=== PATIENT | male | born 1995 | race African-American/Black ===

== ENCOUNTER 2021-12-30 15:41 | Emergency (ER) | payer MEDICAID, SELFPAY ==
[2021-12-30 15:43] VITALS: BP 119/73; PULSE 90; RESP 16; TEMP 36.7; O2SAT 97; BMI 27.0
--- NOTE | 2021-12-30 16:44 | HO.SUDE ---
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 Pt declined SUDE at this time and denied needing treatment resources.
--- NOTE | 2021-12-30 16:45 | MHC.CARE ---
CARE Team met with pt to offer outpatient psychiatric resources. Pt reports that he is homeless and has not had health insurance since losing his father's health insurance. Pt is interested in being referred to [facility]. CARE Team provided pt with contact information for financial counselor so he can contact them for assistance with getting [facility] and will be referring pt to [facility].
--- NOTE | 2021-12-30 17:10 | ED_ITS ---
HPI - Overdose General Chief Complaint: Overdose Stated Complaint: OD Time Seen by Provider: 12/30/21 15:46 Source: patient Mode of arrival: EMS Limitations: no limitations History of Present Illness HPI Narrative: 26-year-old male who presents emergency department for evaluation of unintentional overdose. The patient states that he has chronic pain in takes Percocet for his pain states his right finger where he has a subungual hematoma to the index finger and he took 2 Percocets. Patient told me that these medications were prescribed by him and he did not buy them on the street or get them from friend. According to the nursing notes, the patient passed out in the back of a new bur. The tumor combine driver then gave him Narcan 2 mg intranasally and the patient woke up when he was here in the emergency department. The patient states that he was in a car with a friend but he cannot remember the details of what happened to him. He denies intentionally trying to harm himself. He states that he uses marijuana and did smoke marijuana today but denies using any other drugs except for the Percocet that he states is prescribed for him. Related Data Allergies Allergy/AdvReac Type Severity Reaction Status Date / Time No Known Allergies Allergy Verified 12/30/21 16:49 Review of Systems Verdana 4l Review of Systems: Yes all other systems are reviewed and Verdana 4d are negative [facility] Past Medical History [facility] Narrative: Past medical history: Glaucoma. Past surgical history: None. Social history: He smokes 4 cigarettes per day times 10 years. Denies alcohol use. He smokes marijuana daily. He states that he gets the marijuana from a dispensary but sometimes gets the marijuana friends. Social History Social History Advance Directives: No Advance Directives Information Provided: No Physical Exam Verdana 4l Vital Signs: Verdana 4d Verdana 4d Vital Signs: Verdana 4d Verdana 4Bd Last Vital Signs Verdana 4d Hand Trimmer New 4d Hand Trimmer New 4d Temp 98.5 F 12/30/21 18:30 Hand Trimmer New 4d Pulse 86 12/30/21 18:30 Hand Trimmer New 4d Resp 11 L 12/30/21 18:30 BP 125/62 12/30/21 18:30 Pulse Ox 98 12/30/21 18:30 BMI result Body Mass Index 27.0 Const: General: cooperative and no acute distress Orientation/consciousness: oriented to person and oriented to place Limitations: no limitations HENMT: Head: Yes normal to inspection, Yes normocephalic and Yes atraumatic Ears: external ears normal General nose exam: Normal external nose present Face and sinus: Yes normal facial exam Mouth: Normal oral and palatal mucosa present Throat: Yes posterior oropharynx normal Eyes: General: appearance normal, both eyes and all related structures Pupils: Equal, round and reactive pupils present Neck: Neck: Yes normal visual inspection, Yes no lymphadenopathy, Yes trachea midline and Yes supple Chest: Chest palpation & inspection: normal inspection of the chest and normal palpation of entire chest wall Resp: Effort & Inspection: normal respiratory effort and able to speak in complete sentences Auscultation: clear to auscultation bilaterally Cardio: Rate: regular rate Rhythm: regular rhythm Heart sounds: S1 normal heart sound present, S2 normal heart sound present and no murmurs GI: Inspection: Yes normal to inspection Palpation (GI): Soft to palpation, nontender and no guarding Auscultation: normal bowel sounds : General: Yes no CVA tenderness Back/Spine/Pelvis: Back: no CVA tenderness Skin: General skin exam: no rashes or lesions noted Neuro: General: oriented to person and oriented to place Cranial nerves: Yes CN's II-XII intact bilaterally and Yes Equal, round and reactive pupils present Cognition (Neuro): normal cognition Motor exam (neuro): 5/5 motor strength present throughout Extrem: General: Yes normal to inspection Psych: Appearance: grossly normal Speech and movement: Normal speech and movement present Affect: normal affect Attitude: cooperative Thought process: Normal thought process present Thought content: Normal thought content present Course Course Course Narrative: 26-year-old male who presents emergency department for evaluation altered level of consciousness after taking 2 Percocets, patient was apparently given intranasal Narcan prior to coming to the emergency department and here in the emergency department he is awake and alert and has no respiratory difficulties. I did discuss prevalence of fentanyl and drugs that are purchased on the street especially pills that look like prescription medications with the patient. The patient understood this discussion. The patient will be observed for 2 hours an d if he remains awake and alert without any respiratory difficulties, we will then discharge him to home. The patient was evaluated by our care team will also have the patient evaluated by a assistant men's soccer coach to see if he is interested in getting treatment for drug addiction. 1842: Patient was observed for greater than 2 hours. He remains awake and alert. The patient will be discharged home with intranasal Narcan. Discharge Plan Discharge Clinical Impression: Drug overdose Patient Disposition: Home, Self-Care Instructions: Adult Overdose (ED) Additional Instructions: You accidentally overdosed on a narcotic medication today. Almost all drugs that you by on the street have fentanyl and them and you most likely took of pill today that had fentanyl and which cause caused due to stop breathing in almost diet today. Your are being discharged home with intranasal Narcan. If you are going to continue to use heroin, you should make sure that there is a sober person with you that is not using drugs and that this person can administer intranasal Narcan in the event that you stop breathing. Follow the recommendations as per our care team. Follow-up with your doctor in 2 days. Please return to the emergency department if your symptoms get worse or if you develop any symptoms that are concerning to you.
[2021-12-30 17:33] VITALS: BP 113/53; PULSE 77; RESP 12; TEMP 36.7; O2SAT 97
--- NOTE | 2021-12-30 17:38 | PC.NURSE ---
pt brought to ed by [employer] courtesy car driver who reports that pt passed out in his car and he was unable to wake him up. [employer] courtesy car driver reports that he gave pt 2mg nasal narcan. pt states he took his prescriptive percocet that he has for a wound to his right second finger. pt denies SI/HI, he states he just wanted to relieve his finger pain. pt was given 2 mg nasal narcan by ed charge nurse. pt currently alert and oriented, vss, denies pain. NS on the monitor. no complaints.
[2021-12-30 18:30] VITALS: BP 125/62; PULSE 86; RESP 11; TEMP 36.9; O2SAT 98
[2021-12-30] MEDS: Naloxone HCl Nasal TAKE HOME 4 MG SPRAY NOSTRILALT (18:58)
[2021-12-30 19:00] VITALS: BP 121/62; PULSE 87; RESP 13; O2SAT 97
== END 2021-12-30 19:24 | disposition home or self-care (01) ==
PROVIDERS: Emergency Provider Emergency Medicine Emergency Medical Services
DX: T40.2X1A Poisoning by other opioids, accidental (unintentional), initial encounter (principal); Y92.810 Car as the place of occurrence of the external cause
CPT/HCPCS: 99283; 99284

== ENCOUNTER 2023-01-13 01:54 | Emergency (ER) | payer OTHER, SELFPAY ==
--- NOTE | ~2023-01-13 | XR_ITS ---
EXAMINATION: XR FOOT, LEFT CLINICAL INFORMATION: Pain COMPARISON: None TECHNIQUE: AP, lateral, and oblique views of the left foot. FINDINGS: No acute fracture or dislocation. Plate and screw transfixation of the medial cuneiform and along the lateral aspect of the anterior calcaneus. No evidence of hardware failure or complication. Soft tissues unremarkable. XR/XR foot LT min 3V IMPRESSION: * No acute fracture or dislocation. * No evidence of hardware failure or complication.
[2023-01-13 02:30] VITALS: BMI 24.3
--- NOTE | 2023-01-13 06:43 | ED_ITS ---
HPI - Extremity Problem General Chief complaint: Extremity Injury, Lower Stated complaint: Foot pain Time Seen by Provider: 01/13/23 06:29 Source: patient Mode of arrival: EMS Limitations: no limitations History of Present Illness HPI Narrative: 27-year-old male patient, homeless, presents emergency department for evaluation of left foot pain x2 days and neck pain. The patient cannot recall if he injured his left foot. He states he does have injury to his left foot when he was younger and had some type of surgical repair. He states that the pain is worse if he tries to walk. The patient is also complaining of neck pain. He points to his right and left trapezius muscles when asked to localize the pain. He states that the neck pain is worse with movement. The patient denied fever, chills, chest pain, shortness of breath, nausea, vomiting, numbness, weakness. He states that he is homeless and does walk a lot. The does smoke cigarettes and drinks alcohol. He states that he smokes marijuana and uses crack cocaine in intranasal cocaine but does not use injection drugs. 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 Social history: He is homeless. He does smoke cigarettes, does drink alcohol, he does use marijuana, uses intranasal cocaine and smokes crack cocaine. Social History Social History Advance Directives: No Physical Exam Vital Signs: Vital Signs: BMI result Body Mass Index 24.3 Const: Other: Awake, alert, male patient, does not appear to be in distress, answers all questions appropriately HEENT: Head: Yes normal to inspection, Yes normocephalic and Yes atraumatic Ears: external ears normal General nose exam: Normal external nose present Face and sinus: Yes normal facial exam Mouth: Normal oral and palatal mucosa present Throat: Yes posterior oropharynx normal Eyes: General: appearance normal, both eyes and all related structures Pupils: Equal, round and reactive pupils present Neck: Other: Patient has tenderness palpation of his left and right trapezius muscles, there is no spasm of these muscles, has no cervical spine tenderness has full range of motion of his neck without any limitations. Chest: Chest palpation & inspection: normal inspection of the chest and normal palpation of entire chest wall Resp: Effort & Inspection: normal respiratory effort and able to speak in complete sentences Auscultation: clear to auscultation bilaterally Cardio: Rate: regular rate Rhythm: regular rhythm Heart sounds: S1 normal heart sound present, S2 normal heart sound present and no murmurs GI: Inspection: Yes normal to inspection Palpation (GI): Soft to palpation, nontender and no guarding Auscultation: normal bowel sounds : General: Yes no CVA tenderness Back/Spine/Pelvis: Back: no CVA tenderness Skin: General skin exam: no rashes or lesions noted Neuro: Cranial nerves: Yes CN's II-XII intact bilaterally and Yes Equal, round and reactive pupils present Cognition (Neuro): normal cognition Motor exam (neuro): 5/5 motor strength present throughout Extrem: Other: The patient's left foot and ankle appear to be normal, there is no soft tissue swelling, there is no erythema increased warmth, has good peripheral pulses, there is no localizing point tenderness Psych: Appearance: grossly normal Speech and movement: Normal speech and movement present Affect: normal affect Attitude: cooperative Thought process: Normal thought process present Thought content: Normal thought content present Medications Administered Discontinued Medications Generic Name Dose Route Start Last Admin Trade Name Freq PRN Reason Stop Dose Admin Ibuprofen 400 mg 01/13/23 06:43 01/13/23 06:54 Ibuprofen 400 Mg Tablet PO 01/13/23 06:44 400 mg ONCE ONE Administration Medical Decision Making Medical Decision Making [facility] Narrative: 27-year-old homeless male who presents emergency department for evaluation of left foot pain x2 days and neck pain with no injury. Patient's review of system s were negative. Patient does smoke cigarettes, drinks alcohol uses crack cocaine and intranasal cocaine but denies injection drugs. Patient's neck exam did reveal tenderness palpation of his trapezius muscles which is consistent with a neck sprain. Patient's left foot appear to be normal with no point tenderness and no other abnormal findings. X-ray of the left foot on my independent interpretation revealed plate and screw fixation with no evidence of acute fracture. I did discuss these findings with the patient. He was given ibuprofen 400 mg orally. He was prescribed ibuprofen 400 mg 3 times a day as needed for pain. Was given printed and verbal instructions and discharged home. Differential Diagnosis Differential Diagnoses: The differential diagnosis associated with the presentation includes Differential diagnosis includes was not limited to neck: Muscle strain, cervical sprain, disc disease, infectious process. Foot: Foot sprain, foot strain, fracture, infectious process Independent Interpretation I performed an independent interpretation of an: Plain X-Ray (Left foot) Interpretation: My independent interpretation is no acute fracture, there is hardware which appears to be intact consistent with an old foot fracture Radiology Impression Discussion of test interpretation with radiology: I have reviewed the radiologist's reading. Radiologist Impression: EXAMINATION: XR FOOT, LEFT CLINICAL INFORMATION: Pain COMPARISON: None TECHNIQUE: AP, lateral, and oblique views of the left foot. FINDINGS: No acute fracture or dislocation. Plate and screw transfixation of the medial cuneiform and along the lateral aspect of the anterior calcaneus. No evidence of hardware failure or complication. Soft tissues unremarkable. XR/XR foot LT min 3V IMPRESSION: * No acute fracture or dislocation. * No evidence of hardware failure or complication. Dictated By:Samuel Hickey MDSigned By:<Electronically signed by Samuel Hickey MD in [place]>01/13/23 0311 Discharge Plan Discharge Clinical Impression: Acute pain of left foot Acute strain of neck muscle Qualifiers: Encounter type: initial encounter Qualified Code(s): S16.1XXA - Strain of muscle, fascia and tendon at neck level, initial encounter Patient Disposition: Home, Self-Care Instructions: Cervical Strain (ED) Additional Instructions: The x-ray your left revealed no broken bones. You most likely have a sprain of your foot and your neck causing your pain. Take ibuprofen 400 mg pills, 1 pill every 6 hours as needed for pain. Follow-up with your doctor in 2 days. Please return to the emergency department if your symptoms get worse or if you develop any symptoms that are concerning to you. Prescriptions: New ibuprofen 400 mg tablet 400 mg PO TID PRN (Reason: fever or pain) Qty: 30 0RF Interventions: ED Discharge Assessment Last Done: 01/13/23 07:07 Discharge Date/Time: 01/13/23 07:09
[2023-01-13] MEDS: Ibuprofen 400 MG TABLET PO (06:54)
== END 2023-01-13 07:09 | disposition home or self-care (01) ==
PROVIDERS: Emergency Provider Emergency Medicine Emergency Medical Services
DX: S16.1XXA Strain of muscle, fascia and tendon at neck level, initial encounter (principal); M79.672 Pain in left foot; X58.XXXA Exposure to other specified factors, initial encounter; Y93.9 Activity, unspecified; Y92.9 Unspecified place or not applicable; Y99.9 Unspecified external cause status
CPT/HCPCS: 73630; 99283

== ENCOUNTER 2025-05-29 13:50 | Emergency (ER) | payer OTHER, SELFPAY ==
[2025-05-29 13:57] VITALS: BP 109/65; BP 120/75; PULSE 101; PULSE 112; RESP 14; TEMP 36.6; O2SAT 97; O2SAT 99
[2025-05-29 14:01] VITALS: BP 109/65; PULSE 101; RESP 14; TEMP 36.6; O2SAT 99; BMI 28.7
--- NOTE | 2025-05-29 14:28 | ED.OVERDOSE ---
HPI - Overdose General Chief Complaint: Overdose Stated Complaint: ?OD 4MG NARCAN Time Seen by Provider: 05/29/25 13:59 Source: patient Mode of arrival: ambulatory Limitations: no limitations History of Present Illness ED Provider: Karmen Porter NP HPI Narrative: Patient is a 29-year-old male who presents emergency department via EMS for evaluation. He admits to recreational heroin and crack cocaine usage, smoking it. States that he did purchase from a new person recently, he has not certain whether there may have been any fentanyl. He last recalls being outside of a local convenience smart. PD was called to scene where he was found in an alley and 4 mg of intranasal Narcan was administered. You arrived to emergency department and initially reported to nursing staff that he was having headache and some chest tightness. He denies either symptoms to me at this time. He denies any interest in detox. He is amenable to observation stay in the emergency department to assure he does not relapse in 2 overdose. He offers no physical complaints at this time. Related Data Previous Rx's ?Medication ?Instructions ?Recorded ibuprofen 400 mg tablet 400 mg PO TID PRN fever or pain 01/13/23 #30 tabs Allergies Allergy/AdvReac Type Severity Reaction Status Date / Time No Known Allergies Allergy Verified 05/29/25 14:04 Review of Systems Review of Systems: Yes all other systems are reviewed and are negative PMFSH Past Medical History Attestation statement: The following information was validated with the patient. Source: old records reviewed Social History Social History Unable to assess alcohol history related to: Refusing to respond Smoked in Last 30 Days: Yes Use of substances other than those prescribed or required for medical reasons: Yes Substance Use Type: Crack/Cocaine and Heroin Substance Use Frequency: Chronic Longstanding Last Used Substance: Just Prior to Admission Advance Directives: No Advance Directives Information Provided: No Do you have a plan to hurt others: No Plan Physical Exam Vital Signs: Vital Signs: Last Vital Signs Temp 98 F 05/29/25 22:12 Pulse 96 05/29/25 22:12 Resp 13 05/29/25 22:12 BP 116/68 05/29/25 22:12 Pulse Ox 97 05/29/25 22:12 O2 Del Method Room Air 05/29/25 22:12 BMI result Body Mass Index 28.7 Appearance: Alert.?Oriented to person, place and time. No acute distress.?Normal affect. Eyes: Pupils equal, round and reactive to light.? ENT: Pharynx normal.?? Neck: Normal inspection.? Neck supple.?? CVS: Heart sounds normal. Normal heart rate and rhythm.? Pulses normal.?? Respiratory: No respiratory distress.? Lung sounds clear to auscultation bilaterally?? Abdomen: Soft and non-tender. Normoactive bowel sounds. Skin: Skin warm and dry.? Normal skin color.? ?? Extremities: No lower extremity edema. Neuro: Moves all extremities spontaneously. Sensation intact bilaterally. No focal neuro deficits. Ambulates with normal steady gait. Course Reevaluation(s) Reevaluation #1: ECG reveals Normal sinus rhythm, ventricular rate of 86, normal ENOCH, QTC prolonged 500 MS, anterolateral leads with slight ST-depression, and T-wave inversions, no prior available for comparison, initial troponin within normal range at 16.8, given cocaine usage, will obtain delta troponin. When asked again at this time he does admit to having pain in the middle of his chest describing it as a tightness sensation nonradiating. Repeat ECG reveals QTC 452, T-wave inversions less prevalent, patient to receive aspirin 324 mg. CBC is without leukocytosis, has a mild normocytic anemia that does not meet transfusion criteria, no thrombocytopenia. No electrolyte derangement. No WHIT. LFTs unremarkable. Time: 17:16 Reevaluation #2: Repeat troponin of 39.3. Consulting Cardiology, Dr. Oneill, via [employer] connect, thought to be secondary to demand from hypoxia. Will obtain repeat troponin in 3 hours, and monitor closely Time: 18:06 Reevaluation #3: Patient signed out to [facility] pending repeat troponin re-evaluation, of otherwise normal and not uptrending, and remains not interested in assistance with detox, I anticipate discharge home Time: 19:05 Additional Reevaluation(s): Mario Sanchez PA-C have accepted care of the patient and signed out pending 3rd troponin. Third troponin resulted it is unchanged, we will discharge the patient, and provide him with resources for detox if he so chooses to receive help. Medications Administered Discontinued Medications Generic Name Dose Route Start Last Admin Trade Name Freq PRN Reason Stop Dose Admin Aspirin 324 mg 05/29/25 17:35 05/29/25 17:46 Aspirin 81 Mg Tab.Chew PO 05/29/25 17:36 324 mg ONCE ONE Administration Naloxone HCl 8 mg 05/29/25 14:33 05/29/25 17:43 Naloxone Hcl Nasal Take Home 4 Mg [place] NOSTRILALT 05/29/25 14:34 8 mg ONCE ONE Administration Medical Decision Making Medical Decision Making [facility] Narrative: Patient is a 29-year-old male with past medical history of opioid use disorder presenting to emergency department via EMS for unintentional overdose as per HPI, initial endorsement to nursing staff of chest discomfort T8 denies at the time of my evaluation there was also report of headache which he denies he has no focal neurological deficits no respiratory distress. He has been only tachycardic with a pulse of 102 afebrile no respiratory distress. Speaking clear full sentences. Out of abundance of caution will obtain serum labs to exclude leukocytosis, anemia, electrolyte dysfunction, WHIT, including EKG and troponin to exclude ACS. You have not interested in detox at the time my initial evaluation low reassessments he is cleared and ready for discharge. Regardless he will be sent home with Narcan take home kit and instructed on appropriate usage. Differential Diagnosis Differential Diagnoses: The differential diagnosis associated with the presentation includes (See narrative above) Admission/Observation Consideration of admission/observation: Escalation of care including admission/observation considered Lab Data [facility] Lab Attestation statement: I reviewed the patient's lab results. 05/29/25 14:49 05/29/25 14:49 Labs: Lab Results 05/29/25 05/29/25 05/29/25 Range/Units 14:49 17:29 20:00 WBC 6.3 (4.8-10.8) X10*3/uL RBC 4.53 L (4.60-5.80) X10*6/uL Hgb 12.8 L (14.0-18.0) g/dl Hct 39.0 L (42.0-52.0) % MCV 86.1 (80.0-98.0) fL MCH 28.3 (27.0-33.0) pg MCHC 32.8 (31.0-36.0) g/dl RDW 15.1 (11.0-16.0) % Plt Count 262 (160-400) X10*3/uL MPV 9.1 L (9.4-12.4) fL Immature Gran % (Auto) 0.3 (0.0-0.4) % Neut % (Auto) 64.0 (45-73) % Lymph % (Auto) 29.2 (20-40) % Weston % (Auto) 5.7 (2-11) % Eos % (Auto) 0.6 (0-4) % Baso % (Auto) 0.2 (0-2) % Lymph # (Auto) 1.8 (1.2-4.9) X10*3/uL Weston # (Auto) 0.4 (0.1-1.2) X10*3/uL Eos # (Auto) 0.0 (0.0-0.4) X10*3/uL Baso # (Auto) 0.0 (0.0-0.2) X10*3/uL Abs Immat Gran (auto) 0.02 (0.00-0.03) X10*3/uL Absolute Neuts (auto) 4.0 (2.0-8.3) x10*3/uL Absolute Nucleated RBC 0.000 (0.0-0.012) X10*3/uL Nucleated RBC % (auto) 0.0 (0.0-0.2) /100WBC Sodium 142 (135-145) mmol/L Potassium 3.5 (3.3-5.1) mmol/L Chloride 104 (96-108) mmol/L Carbon Dioxide 28 (22-29) mmol/L Anion Gap 14 (12-20) BUN 10 (9-16) mg/dL Creatinine 1.06 (0.5-1.4) mg/dL Estim Creat Clear Calc 115.4 Estimated GFR > 60 Random Glucose 102 (60-115) mg/dL Calcium 9.3 (8.4-10.2) mg/dL Total Bilirubin 0.3 (0.0-1.0) mg/dL AST 20 (5-37) U/L ALT 26 (0-40) U/L Alkaline Phosphatase 71 (39-117) U/L Troponin I High Sens 16.8 39.3 H D 29.6 (<3.5-35.0) ng/L Total Protein 7.1 (6.5-8.0) g/dL Albumin 4.1 (3.5-5.0) g/dL Ethyl Alcohol < 10 mg/dL Independent Interpretation I performed an independent interpretation of an: EKG (Normal sinus rhythm, ventricular rate of 86, normal ENOCH, QTC prolonged 500 MS, anterolateral leads with slight ST-depression, and T-wave inversions, no prior available for comparison) Independent Historian Clinical information obtained from an independent historian. History obtained from or confirmed by: EMS External Record Review External record reviewed: Outpatient record Social Determinants Patient?s care significantly limited by Social Determinants of Health including: Alcoholism and drug addiction in family Discharge Plan Discharge Clinical Impression: Drug overdose, Cocaine intoxication Patient Disposition: Home, Self-Care Instructions: Cocaine Use Disorder (ED), Adult Overdose (ED) Additional Instructions: Overdose You were seen in our Emergency Department for an overdose today. You received narcan in order to reverse the effects of overdose. Narcan only lasts about 45 min to 1 hour in the system. You may have been given narcan to take home with you today, please keep it near you if you are going to use again, so others can use it if needed.? The number one risk for fatal overdose is using alone? [employer] is a / hotline where you can be on the phone with someone while you use, and they can call for help if they suspect an overdose: [phone] Things to look out for when you leave include severe vomiting or diarrhea, headaches, muscle cramps, fever, coughing, chest pain, or if you feel so short of breath you cannot walk to the bathroom. Please seek care and return any time for worsening symptoms.? You may have been provided with safer injection?items, please take time to take care of YOU and your health. Use new supplies whenever possible to lessen the chances of infections and other illnesses.? If you need more supplies, please go [facility],? [address], [place] you can call or text to coordinate delivery of safer supplies. If you decide you want to stop or cut down on how much you?re using, please call the numbers on the list provided to you or you can come to our outpatient Addiction Treatment office [facility] (M-F 9am-5p) [address], [address] [place], [place]. [phone] All of your screening labs including 3 cardiac enzymes were normal. Follow up with your primary care provider as needed. Prescriptions: No Action ibuprofen 400 mg tablet 400 mg PO TID PRN (Reason: fever or pain) Qty: 30 0RF Interventions: ED Discharge Assessment Last Done: 05/29/25 22:12 Discharge Date/Time: 05/29/25 22:15 Print Language: Spanish
--- NOTE | 2025-05-29 14:33 | ECG_ITS ---
Test Reason : OVERDOSE Blood Pressure : */* mmHG Vent. Rate : 86 BPM Atrial Rate : 86 BPM P-R Int : 170 ms QRS Dur : 112 ms QT Int : 418 ms P-R-T Axes : 74 -9 -26 degrees QTcB Int : 500 ms Normal sinus rhythm T wave abnormality, consider anterolateral ischemia Prolonged QT Abnormal ECG No previous ECGs available Referred By: Karmen Porter Electronically Signed By: WILLOW DICKEY
[2025-05-29 15:05] LABS: MANUAL DIFF FLAG NO
[2025-05-29 15:07] LABS: Basophils Percent Auto 0.2 % (0-2); Eosinophils Percent Auto 0.6 % (0-4); Hemoglobin 12.8 g/dl (14.0-18.0); Imm Gran Abs Auto 0.02 X10*3/uL (0.00-0.03); Imm Gran Pct Auto 0.3 % (0.0-0.4); Lymphocytes Absolute Auto 1.8 X10*3/uL (1.2-4.9); Lymphocytes Percent Auto 29.2 % (20-40); Mean Corpuscular HGB Conc 32.8 g/dl (31.0-36.0); Mean Corpuscular Hemoglobin 28.3 pg (27.0-33.0); Mean Corpuscular Volume 86.1 fL (80.0-98.0); Mean Platelet Volume 9.1 fL (9.4-12.4); Monocytes Absolute Auto 0.4 X10*3/uL (0.1-1.2); Monocytes Percent Auto 5.7 % (2-11); Platelet Count 262 X10*3/uL (160-400); Red Blood Count 4.53 X10*6/uL (4.60-5.80); Red Cell Distribution Width 15.1 % (11.0-16.0); White Blood Count 6.3 X10*3/uL (4.8-10.8)
--- OUTSIDE RECORDS SUMMARY | 2025-05-29 15:14 | XMS_ITS | Clinical Summary ---
Author Organization [employer] Address [address] [place] [address] Care Team Providers Care Hide Stretcher Hand Name Role Phone Unavailable Primary Care Provider Unavailabl e Immunizations Immunization Administration Dates Next Due Influenza Injectable Quadriv alant Preservative Free IIV4 MDCK 12/09/2019 MMR 02/06/2022 Moderna Covid-19 Vaccine 12+ 12/20/2022,11/20/20 Moderna Covid-19 Vaccine 6+ Bivalent 02/18/2023 TD (adult), 2 Lf tetanus tox oid, preservative free, adsorbed 12/09/2019 Varicella 02/06/2022 Social History Tobacco Use Types Packs/Day Years Used Date Smoking Tobacco: Never Assessed Sex and Gender Information Value Date Recorded Sex Assigned at Male 12/20/2022 10:05 AM EST Legal Sex Male 10:01 AM EST Gender Identity Male 12/20/2022 10:05 AM EST Sexual Orientation Straight 12/20/2022 10 :07 AM EST Plan of Treatment Health Maintenance Due Date Last Done Comments Depression Screening 1994 HIV Screening 1994 SDOH Screening 1994 Disability Screening 1994 Alcohol/Substance Use Screening 2006 Tobacco Screening 2006 Family Planning (PISQ) 2009 Hepatitis C Screening 2012 Hepatitis B Vaccines (1 of 3 - 19+ 3-dose series) 2013 DTaP/Tdap/Td Vaccines (1 - Tdap) 12/10/2019 12/09/2019 COVID-19 Vaccine ( - season) 2024 02/18/2023, 12/20/2022, 11/20/2022, Additional history exists Influenza Vaccine (Season Ended) 2025 12/09/2019 Zoster Vaccines (1 of 2) 2044 RSV Patients and Patients Aged 60 years or older (1 - 1-dose 75+ series) 2069 HIB Vaccines Aged Out No longer eligi ble based on patient's age to complete this topic HPV Vaccines Aged Out No longer eligi ble based on patient's age to complete this topic Hepatitis A Vaccines Aged Out No long er eligible based on patient's age to complete this topic IPV Vaccines Aged Out No longer eligi ble based on patient's age to complete this topic Meningococcal B Vaccine Aged Out No l onger eligible based on patient's age to complete this topic Meningococcal Vaccine Aged Out No stevenson chaz eligible based on patient's age to complete this topic Pneumococcal Vaccine: Pediatrics (0 to 5 Years) and At-Risk Patients (6 to 49) Years Aged Out No longer eligible based on patient's age to complete this topic RSV under 20 months Aged Out No longe r eligible based on patient's age to complete this topic Rotavirus Vaccines Aged Out No longer eligible based on patient's age to complete this topic [place] [address] [address] [address]
[2025-05-29 15:24] LABS: Alanine Aminotransferase 26 U/L (0-40); Albumin Level 4.1 g/dL (3.5-5.0); Alkaline Phosphatase 71 U/L (39-117); Anion Gap 14 (12-20); Aspartate Amino Transferase 20 U/L (5-37); Bilirubin Total 0.3 mg/dL (0.0-1.0); Blood Urea Nitrogen 10 mg/dL (9-16); Calcium 9.3 mg/dL (8.4-10.2); Carbon Dioxide 28 mmol/L (22-29); Chloride 104 mmol/L (96-108); Creatinine Clr Calc Pharmacy 115.4; Estimated Glomerular Filt Rate > 60; Ethanol < 10 mg/dL; Glucose Random 102 mg/dL (60-115); Potassium 3.5 mmol/L (3.3-5.1); Sodium 142 mmol/L (135-145); Total Protein 7.1 g/dL (6.5-8.0)
[2025-05-29 15:26] LABS: Troponin-I High Sensitivity 16.8 ng/L (<3.5-35.0)
--- NOTE | 2025-05-29 17:18 | ECG_ITS ---
Test Reason : prolonged qtc Blood Pressure : */* mmHG Vent. Rate : 94 BPM Atrial Rate : 94 BPM P-R Int : 162 ms QRS Dur : 102 ms QT Int : 362 ms P-R-T Axes : 64 -12 -9 degrees QTcB Int : 452 ms Normal sinus rhythm Minimal voltage criteria for LVH, may be normal variant ( R in aVL ) Nonspecific T wave abnormality Abnormal ECG When compared with ECG of 29-May-2025 14:35, Nonspecific T wave abnormality has replaced inverted T waves in Anterolateral leads Referred By: Karmen Porter Electronically Signed By: WILLOW DICKEY
[2025-05-29] MEDS: Naloxone HCl Nasal TAKE HOME 4 MG SPRAY 8 MG NOSTRILALT (17:43)
[2025-05-29] MEDS: Aspirin 81 MG TAB.CHEW 324 MG PO (17:46)
[2025-05-29 17:51] VITALS: BP 120/69; PULSE 95; RESP 16; TEMP 36.8; O2SAT 97
[2025-05-29 17:54] LABS: Troponin-I High Sensitivity 39.3 ng/L (<3.5-35.0)
--- NOTE | 2025-05-29 19:21 | PC.NURSE ---
assumed care of pt at 1900. Pt changed over on previous shift, belongings remained at bedside. This RN removed belongings and placed in teo port. Clinical coordinator made aware.
--- NOTE | 2025-05-29 19:23 | MHC.EDTECH ---
miguel a did the pt belongings list , Heriberto did the global climate change researcher and put the pt belongigns in the teo port. pt was in bed 16H & got moved to room 15 for a global climate change researcher and stayed there.
[2025-05-29 20:48] LABS: Troponin-I High Sensitivity 29.6 ng/L (<3.5-35.0)
[2025-05-29 21:39] VITALS: BP 116/68; PULSE 96; RESP 13; TEMP 36.6; O2SAT 97
[2025-05-29 22:12] VITALS: BP 116/68; PULSE 96; RESP 13; TEMP 36.6; O2SAT 97
== END 2025-05-29 22:15 | disposition home or self-care (01) ==
PROVIDERS: Nurse Practitioner Family; Emergency Provider Emergency Medicine
DX: T40.5X1A Poisoning by cocaine, accidental (unintentional), initial encounter (principal); F14.129 Cocaine abuse with intoxication, unspecified; R51.9 Headache, unspecified; R07.89 Other chest pain; F11.10 Opioid abuse, uncomplicated; Z51.81 Encounter for therapeutic drug level monitoring; Z79.899 Other long term (current) drug therapy
CPT/HCPCS: 36415; 80053; 80307; 84484; 85025; 93005; 99283; 99285

== ENCOUNTER → 2025-05-29 14:33 | Outpatient (BNV) | payer OTHER, SELFPAY | PROVIDERS: Emergency Provider Emergency Medicine; Visit Provider Internal Medicine | DX: R94.31 Abnormal electrocardiogram [ECG] [EKG] (principal); Z13.6 Encounter for screening for cardiovascular disorders; T50.901A Poisoning by unspecified drugs, medicaments and biological substances, accidental (unintentional), initial encounter | CPT/HCPCS: 93010 ==